=== PATIENT | male | born 1980 | race Hispanic/Latino ===

== ENCOUNTER 2020-02-15 07:30 | Emergency (ER) | payer BC ==
[~2020-02-15] VITALS: Ht 162.6 cm; Wt 77.1 kg
[~2020-02-15 07:30] MED LIST: MEDROL4 M1 PO
[2020-02-15] MEDS ORDERED: CLINDAMYCIN HC150 MG PO (07:39)
[2020-02-15] MEDS ORDERED: CHLORDIAZEPOXID25 MG PO (10:51)
== END 2020-02-15 11:21 | disposition home or self-care (01) ==
LOC: ED 07:30
DX: D69.6 Thrombocytopenia, unspecified (principal); K70.9 Alcoholic liver disease, unspecified; Z79.899 Other long term (current) drug therapy
CPT/HCPCS: 80053; 85025; 85610; 85730; 96361; 96374; 96375; 99283-25; J2060; J7030

== ENCOUNTER 2020-06-17 08:45 | Inpatient (IN) | payer BC ==
[~2020-06-17] VITALS: Ht 162.6 cm; Wt 68.1 kg
[~2020-06-17 08:45] MED LIST changes: +CHLORDIAZEPOXID25 MG PO; +CLINDAMYCIN HC150 MG PO
--- NOTE | 2020-06-17 14:06 | NUR ---
PT ARRIVES TO ROOM 127 FOLLOWING THIS RN RECIEVING BEDSIDE REPORT IN ED. PT SLEEPING, WAKES TO STEMULI THEN RIGHT BACK TO SLEEP. KEPT ON 2L/NC. SATS REMAIN 100%. PTS DOES BEGIN TO ACT COMBATIVE WHEN WOKE, BUT CALMS EASILY.
--- NOTE | 2020-06-17 14:16 | NUR ---
PT RECIEVED HIGH DOSES OF ATIVAN AND PHENOBARBITAL IN EMERGENCY DEPARTMENT, DUE TO THIS, UNABLE TO UNSWER ANY MEDICAL HISTORY QUESTIONS ON ARRIVAL TO CCU.
--- NOTE | 2020-06-17 15:41 | NUR ---
PT CONTINUES TO REST WITH EYES CLOSED. NO APPARENT DISTRESS. WAKES TO COUGH OCCASSIONALY.
--- NOTE | 2020-06-17 16:37 | NUR ---
PT PLACED ON ETCO2 MONITOR VIA NC. ETCO2 66. PT INCONTINENT OF URINE. BED AND GOWN CHANGED. DR LYN NOTIFIED OF END TIDAL. ORDER FOR VBG GIVEN
--- NOTE | 2020-06-17 19:14 | NUR ---
PT BECOMING MUCH MORE AGGITATED IN ROOM. DR LYN CALLED AND ANOTHER OTDER FOR 130 MG IV PHENOBARB OBTAINED. GIVEN TO PT.
--- NOTE | 2020-06-17 20:00 | NUR ---
SHIFT REPORT RECEIVED FROM IVONNE ALONZO. PT WOKE UP AGITATED AND CONFUSED, DID NOT KNOW WHERE HE WAS. DR. LYN NOTIFIED AND ONE TIME ORDER RECEIVED FOR PHENOBARBITAL-SEE EMAR. CIWA 14.
--- NOTE | 2020-06-17 20:15 | NUR ---
pt repositioned in bed with asssistance of IVONNE Nunez. Nothing further needed at this time.
--- NOTE | 2020-06-17 21:00 | NUR ---
ASSESSMENT COMPLETED. PT RESPONSIVE, REMAINS MEDICATED AT THIS TIME. LUNGS CLEAR, RA. HR REGULAR. BOWEL TONES ACTIVE. SKIN GROSSLY INTACT. IV SITES PATENT AND INTACT, NEW BAG OF LR STARTED PER ORDERS.
--- NOTE | 2020-06-17 21:50 | NUR ---
pt was repositioned in bed with assistance of IVONNE Nunez. IVONNE Nunez gave pt tyenol suppository, breif was put onto pt. Nothing further needed at this time.
--- NOTE | 2020-06-17 22:00 | NUR ---
SPOKE WITH DR. LYN REGARDING PT'S ELEVATED TEMP AND CONCERN THAT PT CANNOT TAKE ORAL MEDICATIONS AT THIS TIME; ORDER RECEIVED FOR TYLENOL SUPPOSITORY, GIVEN AT THIS TIME. PRECEDEX STARTED AT 0.2MCG/KG/HR AT THIS TIME WELL. CIWA 14. ATTENDS CHANGED AND PT REPOSITIONED. BED ALARM REMAINS IN PLACE FOR SAFETY.
--- NOTE | 2020-06-18 00:37 | NUR ---
PT SLEEPING AT THIS TIME. PRECEDEX CONTINUES AT 0.2MCG/KG/HR. LUNGS CLEAR, RA. HR REGULAR. BOWEL TONES ACTIVE. IV SITES INTACT. ATTENDS IN PLACE, APPEAR DRY AT THIS TIME. BED ALARM REMAINS ON FOR SAFETY.
--- NOTE | 2020-06-18 01:55 | NUR ---
IN TO CHECK ATTENDS WHICH WERE DRY, BUT ONCE PT WAS AWAKE HE STARTED PULLING ON ATTENDS. URINAL PLACED AND PT ABLE TO VOID 250ML. TREMORS APPEAR SEVERE, CIWA 19, 2MG IV ATIVAN GIVEN. BED ALARM REMAINS ON FOR SAFETY.
--- NOTE | 2020-06-18 04:35 | NUR ---
IN TO CHECK ON PT. HE IS EXTREMELY TREMULOUS, LIMBS TENSE/RIGID, MUMBLING INCOHERENT WALLISIAN. ASSISTED HIM TO USE THE URINAL AND CHANGED HIS ATTENDS FOR INCONTINENCE OF URINE. CIWA 18, PRECEDEX DRIP CONTINUES AT 0.2MCG/KG/HR, AND 2MG IV ATIVAN ADMINISTERED. LUNGS REMAIN CLEAR, RA. HR REGULAR. BOWEL TONES ACTIVE. IV SITES INTACT AND PATENT. BED ALARM REMAINS ON FOR SAFETY.
--- NOTE | 2020-06-18 06:26 | NUR ---
ATTEMPTED TO DRAW BLOOD FOR MORNING LABS BUT WAS UNSUCCESSFUL, PT TOLERATED WELL. ATTENDS APPEAR DRY AT THIS TIME. RN ZANE IN TO ATTEMPT LAB DRAW AT THIS TIME. BED ALARM REMAINS ON FOR SAFETY.
--- NOTE | 2020-06-18 09:24 | NUR ---
PT SLEEPING SOUNDLY IN BED, SNORING, VITALS ARE WNL. PT WOKE UP AND REFUSED TO TAKE ANY PO PILLS, APPEARED CONFUSED, ABLE TO GET TWO PILLS IN HIS MOUTH AND HE THEN SPITS THEM ON THE FLOOR. PT THEN ROLLS OVER AND WILL NO ENGAGE WITH ME AFTER THAT. PT IS ON ROOM AIR, LUNGS SOUND CLEAR. IV ATIVAN GIVEN.
--- NOTE | 2020-06-18 09:30 | NUR ---
Update by Rn. Pt is on presidex drip and sleeping soundly. Will need to follow up when pt is no longer on drip.
--- NOTE | 2020-06-18 12:31 | NUR ---
PT STANDING AT THE SIDE OF HIS BED COUGHT IN MONITOR CABLES, IV TUBING AND FIVE LEAD WIRES. PT REFUSES TO SIT BACK DOWN IN HIS BED, THERE IS A LARGE INCONTINENCE OF URINE ON BED AND OUT OF ATTENDS. PT ATTENDS CHANGED, THEN PT IS A HEAVY ONE PERSON ASSIST TO THE CHAIR. GOT PT SITUATED IN THE CHAIR WITH A PILLOW AND A BLANKET, ALL MONITORING CABLES REATTACHED. PT GIVEN ATIVAN FOR AGGITATION, TREMORS, AND DISORIENTATION.
--- NOTE | 2020-06-18 13:00 | NUR ---
IV ACETOMINOPHEN GIVEN FOR PT TEMP OF 101.1
--- NOTE | 2020-06-18 13:15 | NUR ---
PRESIDEX DRIP TITRATED OFF.
--- NOTE | 2020-06-18 13:45 | NUR ---
PRESEDEX DRIP IS OFF PER
--- NOTE | 2020-06-18 16:32 | NUR ---
PT MOVED FROM ROOM 127 TO ROOM 128 FOR BETTER OBSERVATION BY NURSING STAFF. ALL PERSONAL BELONGINGS WENT WELL.
--- NOTE | 2020-06-18 17:55 | NUR ---
PT ASSISTED WITH FEEDING OF REGULAR DINNER, PT HAS SOME SLIGHT TROUBLE WITH COORDINATION. PT ABLE TO TAKE ALL OF HIS AM VITAMINS/SUPPLIMENTS. PT GIVEN IV AND PO ATIVAN FOR ETOH W/D SYMPTOMS.
--- NOTE | 2020-06-18 20:45 | NUR ---
SHIFT REPORT RECEIVED FROM IVONNE DOZIER. ASSESSMENT COMPLETED AT THIS TIME. PT IS DROWSY CONFUSED TO ALL BUT SELF, CIWA 15, 2MG PO ATIVAN GIVEN. DENIES PAIN. LUNGS CLEAR, RA. HR REGULAR. BOWEL TONES ACTIVE. SKIN GROSSLY INTACT, NO EDEMA NOTED. IV SITES INTACT AND PATENT, FLUIDS INFUSING WNL. PT DENIES NEED TO VOID AND ATTENDS DRY AT THIS TIME. TEMP FOUND TO BE 100.7, ORAL TYLENOL GIVEN. BED ALARM ON FOR SAFETY, NO FURTHER REQUESTS AT THIS TIME.
--- NOTE | 2020-06-18 21:28 | NUR ---
PT BED ALARMING, PT ATTEMPTING TO GET OUT OF BED. PT ASSISTED TO BSC AND BACK TO BED. NO OTHER NEEDS AT THIS TIME. CALL LIGHT IN REACH. BED ALARM ON.
--- NOTE | 2020-06-18 22:20 | NUR ---
IN TO HANG NEW BAG OF IV FLUIDS. PT CURRENTLY ASLEEP. ELEVATED TEMPERATURE HAS RESOLVED SINCE TYLENOL DOSE. BED ALARM REMAINS ON FOR SAFETY.
--- NOTE | 2020-06-19 00:30 | NUR ---
ASSESSMENT COMPLETED. PT SLEEPING, BUT WAKES EASILY WHILE I AM IN ROOM AND ANSWERS QUESTIONS. DENIES PAIN. DENIES ANXIETY. LUNGS REMAIN CLEAR, RA. HR REGULAR. BOWEL TONES ACTIVE. IV SITES INTACT, FLUIDS INFUSING WNL. PT DENIES NEEDING TO USE BATHROOM AT THIS TIME, ATTENDS DRY. BED ALARM REMAINS ON FOR SAFETY.
--- NOTE | 2020-06-19 02:40 | NUR ---
PT HAD SET OFF BED ALARM. INCONTINENT OF URINE AND UP TO BSC WITH 1-PA TO HAVE SMEAR OF GREEN STOOL. CIWA 15, 2MG PO ATIVAN GIVEN. PT IS TREMULOUS AND VERY STEADY ON FEET. BED ALARM ON. ONCE BACK IN BED NOTICED THAT IV IN RIGHT UPPER ARM APPEARED RED AND SOMEWHAT SWOLLEN, APPEARS INFILTRATED. UPON CHECKING PATENCY OF AC IV SITE, FOUND THAT THE HUB HAD POKED THROUGH THE DRESSING AND THE IV WAS KINKED AND ALL THE WAY OUT. BOTH IV SITES D/C'D, TIPS INTACT. PT WRAPPED IN WARM BLANKETS, WILL LOOK FOR NEW IV SITE.
--- NOTE | 2020-06-19 04:45 | NUR ---
MUSHROOM SORTER GRADER IVONNE ORTEGA ABLE TO START 20G IV IN RIGHT FOREARM ON FIRST ATTEMPT, PT TOLERATED WELL, HOWEVER UNABLE TO OBTAIN BLOOD FOR MORNING LABS. SHE ATTEMPTED TO DRAW BLOOD WITH BUTTERFLY AND WAS UNSUCCESSFUL. ASSESSMENT COMPLETED, PT REMAINS DROWSY AT THIS TIME. FEBRILE @ 101.9, PRN TORADOL GIVEN. REMAINDER OF ASSESSMENT UNCHANGED. BED ALARM ON FOR SAFETY.
--- NOTE | 2020-06-19 06:00 | NUR ---
IN TO RE-CHECK TEMP, CURRRENTLY 101.0, ROOM TEMP DECREASED. PT CONTINUES TO SLEEP, NO APPARENT DISTRESS. BED ALARM ON.
--- NOTE | 2020-06-19 08:50 | NUR ---
iv site is intact, fluids infuse easily. pt denies sob, and pain. pt is drowsy but able to stand up and pivot to chair with heavy assist. pt incontinent of large amount of urine in bed. all linens changed, partial bedbath given. pt is cooperative.
--- NOTE | 2020-06-19 17:47 | NUR ---
iv site is intact, no redenss or swelling noted, pt denies pain with flush. pt denies pain at the site. pt has a temp of 101.8, 10 mg iv toradol and 500 mg po tylenol given. as well as po ativan for continued management of ETOH withdrawl.
--- NOTE | 2020-06-19 18:21 | NUR ---
pt slept most of the day. in the morning moved to the chair with a heavy one person assist. pt able to eat breakfast. all linenes changed on bed. pt has had multiple doses of eithe po or iv ativan for w/d symptoms. pt always able to anwser yes/no questions. pt ate small amount of lunch, and appears to be sleeping during dinner. pt has a fever this evening 101.8, toradol and tylenol given. after the middle of the day, assisted pt to walk/shuffel to the bathroom where he proceded to urinate towards the urinal. then pt sits down on the closed bedside commode and brushes teeth, gets hair and face washed. elza care done, and clean attends in place. then pt ambulates back to the bed. where he lays and watches tv and naps for the rest of the afternoon. bed alarm is it place
--- NOTE | 2020-06-19 20:00 | NUR ---
SHIFT REPORT RECEIVED FROM IVONNE DOZIER. PT CURRENTLY ASLEEP, NO APPARENT DISTRESS. RESPIRATIONS EVEN AND UNLABORED, ON ROOM AIR. BED ALARM ON FOR SAFETY.
--- NOTE | 2020-06-19 21:45 | NUR ---
ASSESSMENT COMPLETED. PT DROWSY, WAKES EASILY WHEN SPOKEN TO. DISORIENTED AT THIS TIME TO ALL BUT SELF. CIWA 11, 3MG PO ATIVAN GIVEN. LUNGS CLEAR, RA. HR REGULAR. BOWEL TONES ACTIVE. IV INTACT, FLUIDS INFUSING WNL. SKIN GROSSLY INTACT, NO EDEMA NOTED. ATTEDNS DRY, PT DENIES NEED TO VOID AT THIS TIME. BED ALARM ON FOR SAFETY.
--- NOTE | 2020-06-19 22:00 | NUR ---
RECEIVED A CALL FROM PT'S [employer]ESEB[employer] ANTOINE INQUIRING ABOUT PT TO UPDATE GRANDMOTHER ZANE SHERMAN. EXPLAINED THAT WE ARE UNABLE TO GIVE HER INFORMATION DUE TO HIPAA AND THAT SHE WOULD NEED TO CONTACT PT'S SON OSCAR. SHE WAS UNHAPPY ABOUT THIS. CALLED PT'S SON AND UPDATED HIM ON PT'S CONDITION AND DOV'S REQUEST FOR INFORMATION AND ASKED THAT HE REACH OUT TO THEM AND HE SAID HE WOULD.
--- NOTE | 2020-06-20 00:10 | NUR ---
VISUALIZED PT ATTEMPTING TO GET UP, TOLD PT FROM DOOR TO WAIT FOR MY ASSISTANCE. PT UP TO BSC WITH 1-PA, WAS ALREADY INCONTINENT OF URINE. NEW LINENS AND ATTENDS PROVIDED. RETURNED PT TO BED. ASSESSMENT COMPLETED, PT CALM AND COOPERATIVE AT THIS TIME, NO OTHER CHANGES FROM PREVIOUS ASSESSMENT. BED ALARM SET.
--- NOTE | 2020-06-20 02:39 | NUR ---
PT SLEEPING, NO APPARENT DISTRESS. RR:22, HR:80, SPO2:96% ON RA. BED ALARM ON.
--- NOTE | 2020-06-20 04:15 | NUR ---
ASSESSMENT COMPLETED, PT REMAINS CONFUSED, DENIES PAIN. CIWA 8, 2MG IV ATIVAN GIVEN. LUNGS REMAIN CLEAR, RA. HR REGULAR. BOWEL TONES ACTIVE. ATTENDS DRY, PT DENIES NEED TO VOID. IV SITE INTACT, FLUIDS INFUSING WNL. BED ALARM ON FOR SAFETY.
--- NOTE | 2020-06-20 06:00 | NUR ---
IN TO RE-CHECK PT'S TEMP, NOW AFEBRILE. PT INCONTINENT OF LARGE AMOUNT OF URINE. NEW ATTENDS, CHUX, AND PERICARE PROVIDED. CALL LIGHT WITHIN REACH. BED ALARM ON.
--- NOTE | 2020-06-20 09:01 | NUR ---
ASSISTED PT UP TO THE CHAIR WITH WALKER, PT IS A HEAVY ASSIST. PT STATES HE IS COMFORTABLE THERE, AND WAS ABLE TO TAKE SEVERAL STEPS. PT GIVEN BREAKFAST AND MORNING MEDS AT THIS TIME. ALL VITALS REMAIN WNL, NO ELEVATED TEMP THIS AM.
--- NOTE | 2020-06-20 09:20 | NUR ---
ALL LINENES CHANGED ON THE BED. ALL GARBAGES EMPTIED WELL. PT NOW HAS ON FRESH BRIEF AND PJ BOTTOMS.
--- NOTE | 2020-06-20 11:26 | NUR ---
PT SITTING UP IN HIS CHAIR, HAS HIS CALL LIGHT IN FRONT OF HIM. PT ALSO HAS PERSONAL CELL PHONE. PT REPORTS THAT HE IS CONCERNED ABOUT STAYING SO LONG IN THE HOSPITAL BECAUSE OF HIS JOB.
--- NOTE | 2020-06-20 12:30 | NUR ---
IN ROOM WITH PT, ONE PERSON ASSIST WITH WALKER TO GET PT INTO THE BATHROOM TO ATTMEPT TO SIT ON THE TOILET TO VOID, PT NOT ABLE TO. PT THEN SITS ON THE CLOSED BEDSIDECOMMODE SCOOTED UP TO THE SKIN AND IS ABLE TO BRUSHE HIS OWN THEET. ASSISTED PT WITH WASHING HIS FACE. PT THEN A HEAVY ASSIST WITH THE WALKER BACK TO BED. GET PT SETTLED IN BED, PO AND IV ATIVAN GIVEN FOR AGITATION/TREMORS/AND HALUCINATING. PT HAS CALL LIGHT WITH IN REACH, BED ALARM IS ON.
--- NOTE | 2020-06-20 14:05 | NUR ---
pt appears calm and quiet at this time, no observable distress noted, pt has the call light within reach and is also directily observable to the nurses station.
--- NOTE | 2020-06-20 17:00 | NUR ---
PT REPOSTIONED UP IN BED THEN SAT UP STRAIGHT TO SERVE DINNER. ONLY ANSWERS YES AND KNOW QUESTIONS. PT DENIES THE NEED TO USE THE BATHROOM. IV SITE IS INTACT, FLUIDS INFUSE EASILY AT THIS TIME. PT DENIES PAIN, NAUSEA, AND SOB IN GENERAL. PT ABLE TO TAKE PO PILLS EASILY. ALL VITALS ARE WNL. PT HAS CALL LIGHT WITH IN REACH. PT WAS SLEEPING WHEN I FIRST ENTERED THE ROOM. PT HAS SLEPT FOR MOST OF THE SHIFT.
--- NOTE | 2020-06-20 21:00 | NUR ---
PATIENT ATTEMPTING TO EXIT THE BED. EASY TO REDIRECT. PATIENT WAITED UNTIL STAFF ENTERED ROOM. BED SOAKED WITH URINE. PATIENT ABLE TO WALK TO THE BATHROOM. PARTIAL WIPE DOWN DONE AND FRESH ATTENDS. LINENS CHANGED. PATIENT AMBULATED BACK TO BED WITH FWW. PATIENT IS SHANKING AND WEAK BUT DIRECTABLE. VS STABLE. NONPRODUCTIVE COUGH NOTED. LUNG SOUNDS ARE CLEAR. TOLERATING ROOM AIR. WARM BLANKET PROVIDED. IV FLUIDS PER ORDER, SITE WNL. BED ALARM ACTIVE. CALL LIGHT IN REACH. PATIENT DENIED OTHER NEEDS.
--- NOTE | 2020-06-20 23:25 | NUR ---
GETTING OUT OF BED, DID PAUSE WHEN ASKED TOO. STATED NEEDED TO PEE. ASSISSTED TO BSC, WAS ALREADY INC OF URINE. ATTENDS CHANGED AND ASSISSTED BACK TO BED. VERY UNSTEADY ON FEET.
--- NOTE | 2020-06-21 | NUR ---
PATIENT RESTING IN BED. ASKED PATIENT IF HE NEEDS TO VOID, PATIENT DENIED. REPLACED CARDIAC LEADS. ASSISTED PATIENT TO REPOSITION IN BED. BED ALARM ACTIVE.
--- NOTE | 2020-06-21 00:30 | NUR ---
PT TRYING TO GET OOB, DENIES NEED TO VOID. SPEAKING ROMANSH AT THIS TIME. GIVEN 2MG ATIVAN IV FOR RESTLESSNESS.
--- NOTE | 2020-06-21 03:00 | NUR ---
PATIENT UP TO BEDSIDE. USES URNAL, VOIDS 200 MLS. PATIENT ALSO INCONTINENT PRIOR TO THIS, ATTENDS CHANGED. PATIENT'S ORAL TEMP 99.0 F. PRN TYLENOL PROVIDED. PATIENT RESTING IN BED. BED ALARM ACTIVE.
--- NOTE | 2020-06-21 04:30 | NUR ---
PATIENT DENIES NEED TO VOID. VS STABLE. IVF PER ORDER, SITE WNL.
--- NOTE | 2020-06-21 06:40 | NUR ---
PATIENT INCONTINENT OF URINE. ATTENDS CHANGED. PATIENT DENIED NEED TO VOID. PATIENT WONDERING WHEN HE CAN GO HOME. ASSUSRED HIM THE DOCTOR WOULD SEE HIM TODAY AND DECIDE IF HE WOULD BE SAFE TO GO HOME. PATIENT CALM. RESTING IN BED. BED ALARM ACTIVE.
--- NOTE | 2020-06-21 09:00 | NUR ---
PT UP AND AMBULATING TO THE BATHROOM WITH WALKER AND ONE PERSON ASSIST. PT SITS ON THE TOILET TO VOID. THEN ASSISTED UP TO THE SINK WITH WALKER PT ABLE TO BRUSH TEETH, WASH HANDS AND FACE; HOWEVER DUE TO DEXTERITY ISSUES THIS ALL TAKES A CONSIDERABLE AMOUNT OF TIME. ALL LINENS CHANGED ON THE BED. PT ABLE TO PUT ON CLEAN ATTENDS WHEN SITTING ON THE TOILET. PT AMBULATES WITH WALKER AND STAND BY ASSIST TO CHAIR. BREAKFAST IS GIVEN TO PT, AND HE IS ABLE TO TAKE HIS MORNING PILLS. VITALS ARE WNL AT THIS TIME.
--- NOTE | 2020-06-21 10:20 | NUR ---
not able to give iv ativan as iv site is no longer good. po ativan given instead. pt has arms up in the air grabing for things that are not there. 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 pt states he is sure everyone here is lying to him, not oriented to place, location, or this nurse who has taken care of him for the last 3 days. pt does know that he stopped drinking beer.
--- NOTE | 2020-06-21 11:00 | NUR ---
RUY CORONADO ABLE TO GET A 22 G IV STARTED IN THE RT FOREARM. PT MIGEL WELL. LABS DRAWN AT THIS TIME WELL. SITE FLUSHES EASILY. PT REMIANS IN THE CHAIR FOR THIS.
--- NOTE | 2020-06-21 12:34 | NUR ---
PT DENIES FEELING HUNGERY FOR LUNCH AT THIS TIME. PT ONLY WANTS HIS COAT. VITALS ARE WNL. LUNCH IS WITHIN REACH OF THE PT. PT DENIES NEED TO GET UP TO VOID. CALL LIGHT IS WITHIN REACH. PT REMAINS UP IN THE CHAIR AT THIS TIME.
--- NOTE | 2020-06-21 14:31 | NUR ---
Pt found on his knees in front of his chair. He denies any pain or injury and there is no linda or injury noted upon viewing the pt's skin. Vital signs checked and pt assisted back to his chair. The pt states he did not fall but is unable to tell me why he is on the floor. The pt's nurse was notified and she states she will notify Dr Huitron. Strength equal in all extremities, pupils equal.
--- NOTE | 2020-06-21 15:05 | NUR ---
PT TWO PERSON ASSIST TO MOVE FROM CHAIR TO BED.
--- NOTE | 2020-06-21 15:20 | NUR ---
IV SITE IN RT UPPER FOREARM REMOVED AN IT IS NOT PATENT. PT MIGEL WELL.
--- NOTE | 2020-06-21 21:45 | NUR ---
PT IS AWAKE, TALKING ABOUT HOW HE IS WORRIED ABOUT LOSING HIS JOB. AMB TO BATHROOM USING WALKER, IS VERY UNSTEADY. GIVEN 2MG ATIVAN PO FOR ANXIETY.
--- NOTE | 2020-06-21 23:19 | NUR ---
IN TO FIX IV PUMP ALARM. pt REQUESTED TO VOID. USED URINAL. pt UNCORDINATED, STOOD AT THE BEDSIDE. NEW DEPENDS. SKIN CARE DONE. FLOOR CLEAN. pt BACK TO BED. PROVIDED PHONE. CALL LIGHT WITHIN REACH.
--- NOTE | 2020-06-22 01:00 | NUR ---
IN TO ASSESS PT. NO CHANGES. ATTENDS DRY. REMAINS SOMEWHAT DROWSY AND ORIENTED TO SELF, THOUGHT IT WAS MAY.
--- NOTE | 2020-06-22 02:49 | NUR ---
SLEEPING AT THIS TIME.
--- NOTE | 2020-06-22 04:51 | NUR ---
GETTING OUT OF BED, DID WAIT UNTIL NURSE WAS IN ROOM BUT THEN TRIED TO FOLLOW HER TO BATHROOM WHILE GETTING THE COMMODE. PT IS EXTREMELY UNSTEADY ON FEET, STAGGERS,NEARLY FALLING ONTO CHAIR. ON COMMODE AND HAD SMEAR STOOL. WAS INC OF URINE. LINEN CHANGED. VOICES CONCERN THAT HE WILL LOSE JOB.
--- NOTE | 2020-06-22 06:59 | NUR ---
STARTING TO BECOME RESTLESS, INC OF URINE AND ASSISTED TO BSC, VOIDED IN COMMODE AND ON FLOOR. IS A LITTLE MORE ORIENTED THIS AM.
--- NOTE | 2020-06-22 07:35 | NUR ---
report recieved. care of patient assumed at this time. pt awake in bed, on cell phone. visible from nurses station. call light within reach. no further needs at this time.
--- NOTE | 2020-06-22 08:11 | NUR ---
PT ASSESSMENT COMPLETED. PT UP TO BSC TO VOID. UNSTEADY ON FEET. VERBAL CUES REQUIRED. PT ABLE TO FOLLOW VERBAL COMMANDS. CIWA SCORE OF 10. MEDICATIONS GIVEN. BREAKFAST ORDERES. ORAL CARE COMPLETED. PT BACK IN BED. BED ALARM ON. IV FLUIDS INFUSING. NO ASSESSED NEEDS AT THIS TIME.
--- NOTE | 2020-06-22 09:44 | NUR ---
pt up to void in bsc and back in bed eating breakfast. pt is unsteady on feet and having difficulty using fork. heart rate up to 100 bpm with activity. visible from the nurses station. call light wihtin reach. will closely monitor.
--- NOTE | 2020-06-22 10:30 | NUR ---
pt done with breakfast now sleeping. respirations even and unlabored. bed alarm in place. no further assessed needs at this time.
--- NOTE | 2020-06-22 11:54 | NUR ---
Assessment completed. pt awoke to voice but then fell back asleep during assessment. breathing even and unlabored rr= 18. spo2= 97 percent on room air. lungs sound clear throughout. bed alarm on. call light within reachwill continue to monitor.
--- NOTE | 2020-06-22 12:27 | NUR ---
pt up to bsc to eat and now back in bed. lunch at bed side. pt too sleepy to eat at this time. iv fluids infusing. bed alarm in place. will continue to monitor.
--- NOTE | 2020-06-22 13:30 | NUR ---
pt talking to mother Yulia on the phone at this time. PT able to carry on conversation and stay awake.
--- NOTE | 2020-06-22 14:49 | NUR ---
PT HAS A TEMPERATURE OF 99.2, FACE IS FLUSHED. GIEN 500 MG ORAL TYLENOL AT THIS TIME (SEE EMAR). ASKED PT IF HE WANTS TO GET OUT OF BED, PT REFUSED. REMAINS IN BED, CALL LIGHT WITHIN REACH. NO FURTHER NEEDS AT THIS TIME. WILL CONTINUE TO MONITOR.
--- NOTE | 2020-06-22 16:19 | NUR ---
ASSESSMENT COMPLETED. PT REMAINS CONFUSED BUT DIRECTABLE. HEART RATE INCREASED TO 90-100 WHILE IN BED. PT MOVING AROUND IN BED. GIVEN 1 MG PO ATIVAN AT THIS TIME (SEE EMAR). PT UP TO BSC, UNSTEADY ON FEET. ONE PERSON ASSIST REQUIRED. BACK IN BED, IV FLUIDS INFUSING. CALL LIGHT WITHIN REACH AND BED ALARM IN PLACE. WILL CONTINUE TO MONITOR.
--- NOTE | 2020-06-22 18:45 | NUR ---
pt ate 50 percent of dinner. Denies the need to void. respirations even and unlabored. call light within reach. bed alarm in place.
--- NOTE | 2020-06-22 20:10 | NUR ---
THIS RN IN TO ASSESS PT. LAYING IN BED AWAKE AND ALERT ON HIS PHONE. PT ORIENTED TO SELF, AND EVENT THOUGH PT DOES NOT BELIEVE HE HAS COVID. PT UNABLE TO ANSWER HIS CURRENT LOCATION EVEN WHEN ASKED IN [place]. PT REPORTS NO PAIN AT THIS TIME AND NO DIFFICULTY BREATHING. PT INFORMED ME THAT HE NEEDED TO VOID AND WAS HELPED UP TO USE THE URINAL. PT WAS UNSTEADY ON HIS FEET BUT WAS ABLE TO VOID. PT'S ATTENDS HAD URINE SO PT WAS CLEANED AND NEW ATTENDS WERE PLACED ON PT. PT WAS REORIENTED TO ROOM AND PLAN OF CARE AFTERWARDS. PT NOW LAYING IN BED ON ROOM AIR. PT REPORTS NO FURTHER NEEDS AT THIS TIME, WILL CONTINUE PLAN OF CARE. CALL LIGHT WITHIN REACH, BED IN LOWEST POSITION. IV FLUIDS INFUSING ORDERED.
--- NOTE | 2020-06-22 20:20 | NUR ---
WHILE IN THE ROOM FOR ASSESSMENT PT WAS GIVEN 1MG PO ATIVAN FOR SLIGHT TREMORS AND RESTLESSNESS, WILL CONTINUE PLAN OF CARE. IVF INFUSING, PT ON ROOM AIR, CALL LIGHT WITHIN REACH, BED IN LOWEST POSITION, PT REPORTS NO FURTHER NEEDS WHEN ASKED. WILL CONTINUE PLAN OF CARE.
--- NOTE | 2020-06-23 00:17 | NUR ---
THIS RN IN TO ASSESS PT. PT WAS WITH IVONNE CARDONA USING THE URINAL. NEW BRIEFS PLACED ON PT HE HAD ALSO BEEN INCONTINENT OF URINE. PT ALSO CLEANED UP, PERICARE DONE BY IVONNE CARDONA. PT NOW BACK IN BED AND IS AWAKE AND ALERT. PT AWARE OF LOCATION WHEN ASKED AT THIS TIME. PT ANSWERING QUESTIONS APPROPRIATELY AND CONVERSING WITHOUT DIFFICULTY IN YI. PT DENIES SHORTNESS OF BREATH OR DIFFICULTY BREATHING AND DENIES HAVING ANY PAIN AT THIS TIME. PT REPORTS NO FURTHER NEEDS AT THIS TIME AND STATES HE WILL BE GOING BACK TO SLEEP, CALL LIGHT WITHIN REACH, BED IN LOWEST POSITION, WILL CONTINUE PLAN OF CARE.
--- NOTE | 2020-06-23 01:35 | NUR ---
THIS RN IN TO HANG A NEW BAG OF MAINTENACE IV FLUID. PT SLEEPING ON SIDE, RESPIRATIONS EVEN AND UNLABORED. SP2 AT 94% WHILE ON ROOM AIR. PT LEFT UNDISTURBED. WILL CONTINUE PLAN OF CARE.
--- NOTE | 2020-06-23 03:07 | NUR ---
PT READJUSTING IN BED AND SLEEPING AT THIS TIME. RESPIRATIONS EVEN AND UNLABORED, PT ON ROOM AIR, SPO2 AT 94%. PT IN NO APPARENT DISTRESS AND WAS LEFT UNDISTURBED, WILL CONTINUE PLAN OF CARE.
--- NOTE | 2020-06-23 03:53 | NUR ---
RESPONDED TO PT CALL LIGHT, PT STATED HE HAD VOIDED IN THE BED. WHEN ENTERING THE ROOM PT STATED THAT HE HAD WOKEN UP AND URINATED WITHOUT FEELING IT. HE STATED WHEN HE WOKE HE HAD ALREADY URINATED. PERICARE DONE ON PT AND SHEETS/ ATTENDS CHANGED. PT WAS ABLE TO STAND UP THOUGH UNSTEADY WITH A WALKER WHILE BEING CLEANED AND CHANGED. PT STATES HE FEELS RELAXED RIGHT NOW AND DOES NOT HAVE ANY PAIN. PT DENIES SOB OR DYSPNEA WHEN ASKED. PT ON ROOM AIR, SPO2 AT 93%. A DISCUSSION WAS HAD WITH THE PT. IN [place] HE STATED HE WANTED TO STOP DRINKING ALCOHOL AND NOT GO BACK TO IT. PT IS ALERT AND ORIENTED TO SELF, LOCATION, AND MONTH. PT REPORTS NO FURTHER NEEDS AT THIS TIME, WILL CONTINUE PLAN OF CARE. CALL LIGHT WITHIN REACH, BED IN LOWEST POSITION.
--- NOTE | 2020-06-23 04:46 | NUR ---
THIS RN IN TO DRAW LABS. PT AWAKE AND ALERT WATCHING TV. PT ASKED FOR HIS BELONGINGS BAG AND CHECKED TO SEE IF HE HAD HIS CARMONA THAT HE BROUGHT WITH HIM. PT COUNTED THE BILLS AND STATED IT WAS ALL THERE HE HAD THOUGHT HE LEFT IT SOMEWHERE ON THE ED STRETCHER. PT PLACED THE CARMONA BACK IN HIS SHOES AND STATED HE FELT RELIEVED. BELONGINGS WERE PLACED BACK IN HIS BELONGINGS BAG AND PLACED IN THE CLOSET HIS CCU CLOSET. PT PROVIDED WITH WATER HE HAD ASKED AND HAD NO FURTHER REQUESTS. CALL LIGHT WITHIN REACH, PT LAYING IN BED WATCHING TV. WILL CONTINUE PLAN OF CARE.
--- NOTE | 2020-06-23 05:50 | NUR ---
PT ABLE TO STAND AT BEDSIDE-LEANING ON BED-TO USE URINAL..
--- NOTE | 2020-06-23 08:00 | NUR ---
REPORT RECEIVED FROM NIGHT RN AND PT. CARE RESUMED. PT. PLEASANT, ALERT AND ORIENTED. DENIES PAIN. IV SITE WNL AND SALINE LOCKED. PT. O2 SAT. IS 94% ON RA. CIWA SCORE OF 0. PT. AMBULATED TO BEDSIDE TO VOID AND WAS WEAK. PT. LEFT RESTING IN BED WITH CALL LIGHT IN REACH.
--- NOTE | 2020-06-23 10:55 | NUR ---
PATIENT AMBULATED TO THE BATHROOM WITH FWW AND TOLERATED WELL. LARGE, FORMED BM. PT. REPORTED SOME WEAKNESS IN LEGS, BUT DENIED PAIN. PT. ORIENTED AND ALERT. DR. OTERO IN THE ROOM. LINENS CHANGED AND PT. ASSISTED WITH BEDBATH AND ORAL CARE. PT. LEFT RESTING IN CHAIR WITH CALL LIGHT IN REACH.
[2020-06-23] MEDS ORDERED: VITAMIN B-1100 MG PO (11:12)
--- NOTE | 2020-06-23 12:33 | NUR ---
PATIENT SPOKE TO PHARMACY VIA MACHINE SHOP LEAD MAN ON THE PHONE. PT. ANXIOUS TO BE DISCHARGED. ASSESSMENT COMPLETED. PT. 02 SAT. IS 97% ON RA. IV SITE WNL AND FLUSHES WELL. LUNGS DIM. IN THE BASES BILAT. PT. LEFT RESTING IN BED WITH CALL LIGHT IN REACH.
--- NOTE | 2020-06-23 12:52 | NUR ---
SPOKE WITH [facility] STAFF, PATIENT IS ON THE PHONE WITH NURSING AND INSURANCE BILLING CLERK. STAFF STATES HE IS INDEPENDENT AND DISCHARGING. HIS NEEDS ARE PCP AND POSSIBLE ETOH TREATMENT. THEY STATE THEY WILL ASK HIM WITH THE INSURANCE BILLING CLERK. PATIENT DOES SPEAK SOME AFGHAN BUT IT IS OFTEN UNSURE WHAT HE IS UNDERSTANDING. LEATHER STITCHER CALLED BACK AND STATED HE DOES WANT A PCP [place], DOES NOT CARE WHERE. HE ALSO IS AGREEABLE TO A CALL FROM [facility]. HIS CELL IS [phone]. SHE CONFIRMED THE CELL NUMBER. CALLED [facility] AND THEY ARE ACCEPTING NEW PATIENTS. THEY MADE APPOINTMENT WITH HIM FOR MondayJune AT 2:40PM. DISCUSSED THAT HE IS COVID + AND SHOULD BE OVER QUARANTINE BY THEN. THEY ASK THAT IF HE HAS SYMPTOMS AT THAT TIME FOR HIM TO CALL FROM HIS CAR AND THEY WILL BRING HIM BACK WITHOUT USING WAITING ROOM. HE WILL ALSO NEED A FACE MASK. THEY ASK FOR DISCHARGE SUMARRY TO BE SENT AFTER DISCHARGE. CALLED [facility] AND LEFT MESSAGE FOR PEER TO PEER THAT PATIENT IS REQUESTING AN ASSESSMENT FOR TREATMENT OPTIONS. DID TELL THEM HE WOULD NEED [place] SPEAKING, AND TO CALL CELL DUE TO COVID POSITIVE STATUS. CALLED STAFF AGAIN AT [facility] AND DISCUSSED APPOINTMENT FOR NEW PCP AND CALL FROM [facility]. THEY WILL PROVIDE THIS INFORMATION IN HIS DISCHARGE INSTRUCTIONS.
--- NOTE | 2020-06-23 14:29 | NUR ---
CALLED [facility] AGAIN. SPOKE WITH GENERAL COUNSEL, APPARENTLY THEY HAVE SOME STAFF OUT SICK SO SHE IS UNSURE WHEN THEY WILL HAVE COVERAGE FOR PEER TO PEER. SHE STATES TO LEAVE ANOTHER MESSAGE AND HOPEFULLY IT WILL BE WITHIN A DAY OR SO. VOICEMAIL LEFT TO TELL THEM PATIENT WAS DISCHARGED, IS [place]URKMEN SPEAKING AND CELL PHONE NUMBER.
--- NOTE | 2020-06-23 14:39 | NUR ---
PATIENT DISCHARGED. DISCHARGE EDUCATION COMPLETED AND QUESTIONS ANSWERED. IV REMOVED AND CATH. INTACT. PT. LEFT WITH HIS BELONGINGS BY WHEELCHAIR AND PICKED UP BY FRIEND.
== END 2020-06-23 13:20 | disposition home or self-care (01) | DRG 896 ==
LOC: ED 08:45 → CCU 13:48
PROVIDERS: ADMIT Student in an Organized Health Care Education/Training Program; ATTEND Student in an Organized Health Care Education/Training Program
DX: F10.231 Alcohol dependence with withdrawal delirium (principal); U07.1 COVID-19; G93.41 Metabolic encephalopathy; K70.10 Alcoholic hepatitis without ascites; D69.59 Other secondary thrombocytopenia
CPT/HCPCS: 36415; 51798; 71045; 80048; 80053; 81001; 82140; 82803; 83605; 83735; 85025; 85610; 87040; 94660; 96374; 96375; 96376; 99284-25; C9803; G0480; J0131; J1885; J2060; J2405; J2560; J3411; J3480; J7030; J7060; J7121; U0003

== ENCOUNTER 2020-09-28 11:59 | Emergency (ER) | payer OTHER, BC ==
[~2020-09-28] VITALS: Ht 162.6 cm; Wt 68.0 kg
[~2020-09-28 11:59] MED LIST changes: +VITAMIN B-1100 MG PO
== END 2020-09-28 13:21 | disposition home or self-care (01) ==
LOC: ED 11:59
DX: S20.212A Contusion of left front wall of thorax, initial encounter (principal); W22.8XXA Striking against or struck by other objects, initial encounter
CPT/HCPCS: 71101; 99283-25; A9270

== ENCOUNTER 2020-10-30 08:21 | Emergency (ER) | payer OTHER, BC ==
[~2020-10-30] VITALS: Ht 162.6 cm; Wt 68.0 kg
[2020-10-30] MEDS ORDERED: IBU600 MG PO (09:39)
[2020-10-30] MEDS ORDERED: HYDROCODON-ACE1 EA10 PO (09:39)
== END 2020-10-30 10:15 | disposition home or self-care (01) ==
LOC: ED 08:21
PROC: 2W3CX1Z Immobilization of Right Lower Arm using Splint (ICD-10-PCS; principal; 2020-10-30)
DX: S62.511A Displaced fracture of proximal phalanx of right thumb, initial encounter for closed fracture (principal); W22.8XXA Striking against or struck by other objects, initial encounter
CPT/HCPCS: 29125; 73130; 99283-25; A9270

== ENCOUNTER 2022-08-10 12:12 | Emergency (ER) | payer OTHER ==
[~2022-08-10] VITALS: Ht 167.6 cm; Wt 68.0 kg
[~2022-08-10 12:12] MED LIST changes: +HYDROCODON-ACE1 EA10 PO; +IBU600 MG PO
[2022-08-10] MEDS ORDERED: LIDODERM1 EACH TOP (13:22)
[2022-08-10] MEDS ORDERED: NAPROSYN500 MG PO (13:22)
== END 2022-08-10 13:48 | disposition home or self-care (01) ==
LOC: ED 12:12
DX: S22.42XA Multiple fractures of ribs, left side, initial encounter for closed fracture (principal); X50.1XXA Overexertion from prolonged static or awkward postures, initial encounter
CPT/HCPCS: 71101; 99283-25

== ENCOUNTER 2022-10-19 12:19 | Emergency (ER) | payer OTHER ==
[~2022-10-19] VITALS: Ht 167.6 cm; Wt 68.0 kg
[~2022-10-19 12:19] MED LIST changes: +LIDODERM1 EACH TOP; +NAPROSYN500 MG PO
[2022-10-19 14:23] VITALS: BP 121/74
== END 2022-10-19 14:23 | disposition home or self-care (01) ==
LOC: ED 12:19
DX: S20.211A Contusion of right front wall of thorax, initial encounter (principal); W18.09XA Striking against other object with subsequent fall, initial encounter; Z79.899 Other long term (current) drug therapy
CPT/HCPCS: 71101